=== PATIENT | male | born 1995 | race Caucasian/White ===

== ENCOUNTER 2019-06-02 12:02 | Emergency (ER) | payer MEDICAID ==
[~2019-06-02] VITALS: Ht 180.3 cm; Wt 65.0 kg
[2019-06-02 12:15] VITALS: BP 103/76
[2019-06-02] MEDS ORDERED: PENI250T2 PO (12:45)
--- NOTE | 2019-06-02 12:58 | NUR ---
PT WAS SEEN AND TREATED BY DAISY LANGSTON.
== END 2019-06-02 13:01 | disposition home or self-care (01) ==
LOC: ER 12:02
DX: K04.7 Periapical abscess without sinus (principal); R05 Cough; Z88.6 Allergy status to analgesic agent; Z79.2 Long term (current) use of antibiotics
CPT/HCPCS: 99283